=== PATIENT | male | born 1970 | race Caucasian/White ===

== ENCOUNTER 2016-09-20 17:05 | Observation (INO) | payer BC ==
--- NOTE | ~2016-09-20 | HP ---
History And Physical [facility] [address] [place]. [address] NAME: DES SAMS : 72 STATUS : ADM Prasanth PAT#: [id number] AGE: 46 ADM/REG DATE : 09/20/16 MR#: [id number] REPORT SERV DATE: 09/21/16 DICTATED BY: JOSE ALBERTO BYRD DATE: 09/21/16 REPORT STATUS : Draft TRANSCRIBED BY: MODAbdon DATE: 09/21/16 DATE OF ADMISSION: 09/20/2016 CHIEF COMPLAINT: Atypical chest pain. HISTORY OF PRESENT ILLNESS: A very pleasant, affable 46-year-old white gentleman with no known history of CAD, but with risk factors of hypertension, dyslipidemia, AODM, and positive family history of tobacco abuse, states that he feels he is under considerable stress. He recently purchased a new home and has yet to sell his previous one. 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 With a large [employer] and feels under considerable stress. He states that on 09/19/2016 on Sunday he mowed the lawn at both residence, and later in the day consumed six vodka drinks and a bottle of wine. Sunday morning on 09/20/2016, he did not feel well. He thought it was secondary to the alcohol consumption. He noted some numbness in his hands and also felt as if when he urinated he was voiding "cold urine." He felt somewhat dizzy, somewhat diaphoretic. He sat down while at work, coworker's assisted him. He then felt some neck tightness and a minor chest "poke" in his left chest that occurred twice over 5 to 10 minutes. He reports associated shortness of breath, diaphoresis, and dizziness. Denies any nausea or belching. He describes the chest discomfort as he rates it as a 1.5/10. At the time of interview in the [facility], he is pain free, and he states the episode lasted seconds in duration. The patient has never had a stress test. He was concerned about the symptoms, given his mother's sudden at 54 of a heart attack. The patient denies any personal history of myocardial infarction, stroke, DVT, or pulmonary embolus. The patient denies any recent fever or chills, no palpitations, no syncopal episodes. Denies PND or orthopnea. PAST MEDICAL HISTORY: 1. Hypertension. 2. Dyslipidemia. 3. AODM. 4. Positive family history for early CAD. 5. Ongoing tobacco abuse. 6. Alcohol abuse. PAST SURGICAL HISTORY: None. SOCIAL HISTORY: He is . He does not have any children. He is employed in construction, is in inconsistent workout routine, although he is extremely active on the job site, and managing two residence. He smokes approximately a half pack per day for 30 plus years. Also uses smokeless tobacco. At times, he consumes four to ten drinks most days from vodka to wine. He occasionally smokes marijuana. FAMILY HISTORY: Mother at the age of 54 of a heart attack. REVIEW OF SYSTEMS: History And Physical [address] [address] NAME: DES SAMS : 72 STATUS : ADM Prasanth PAT#: [id number] AGE: 46 ADM/REG DATE : 09/20/16 MR#: [id number] REPORT SERV DATE: 09/21/16 DICTATED BY: JOSE ALBERTO BYRD DATE: 09/21/16 REPORT STATUS : Draft TRANSCRIBED BY: QUINN DATE: 09/21/16 A 14-point review of systems was performed, significant for HPI including snores per report with no formal sleep study. Home blood pressures of 120 to 140 over 90. Blood sugars of 110 to 140. Otherwise complete review of systems obtained and negative. ALLERGIES: NO KNOWN DRUG ALLERGIES HOME. HOME MEDICATIONS: Aspirin p.r.n., citalopram 5 mg daily, Trilipix 135 mg daily, lisinopril 10 mg daily, Claritin p.r.n., metformin 1000 mg twice daily, multivitamin daily, pravastatin 20 mg nightly, and a nasal spray p.r.n. PHYSICAL EXAMINATION: BLOOD PRESSURE: Bilateral blood pressures on arrival, right 149/83, left 144/81, this morning 135/91, PULSE: 85, RESPIRATORY RATE: 17, TEMPERATURE: 98.2, O2 saturation 96% on room air. HEIGHT: 6 feet 0 inches, WEIGHT: 216 pounds. BMI of 29. GENERAL: Cooperative, in no apparent distress. HEENT: Pupils 2 mm, sclera nonicteric. Nares patent. Moist mucous membranes. No xanthelasma. NECK: Trachea midline, no thyromegaly. No JVD. No bruits. LYMPH: No cervical lymphadenopathy. No supraclavicular lymphadenopathy. RESPIRATORY: Unlabored respirations. Breath sounds clear bilaterally to posterior auscultation. No wheezes or rhonchi. CARDIOVASCULAR: Regular rate. No murmur, rub or gallop appreciated. EXTREMITIES: Without edema. Pulses 2+ bilaterally. ABDOMEN: Soft, nontender, nondistended, normal bowel sounds auscultated throughout. No organomegaly. SKIN: Warm, dry extremities. No pallor, or cyanosis. PSYCHIATRIC: Appropriate affect. Alert, oriented x3. LABORATORY DATA: Troponin is less than 0.02 x3. Potassium 3.9, BUN 11, creatinine 1.25, glucose 123, and magnesium 1.9. WBC of 7.6, hemoglobin 13.1, hematocrit 38.1, and platelet count 313,000. EKG; sinus rhythm (initially sinus tachycardia). ASSESSMENT AND PLAN: 1. Atypical chest pain in patient with multiple risk factors. The patient has been observed in the CP[facility] overnight to rule out myocardial infarction with serial enzymes and serial EKGs and held n.p.o. We will proceed with exercise treadmill today. The patient will be discharged home if low risk, no ischemia. If anything suggestive of ischemia, Cardiology referral will be initiated. Otherwise, the patient will be asked to follow up with the PCP in one to two weeks with all studies being sent to that office. 2. Hypertension. Monitor blood pressure and continue home medications. 3. Dyslipidemia. Continue statin. 4. Adult onset diabetes mellitus. Hold metformin, level 1 sliding scale correction. 5. Ongoing tobacco abuse. Counseled regarding cessation for cardiovascular health and well being. The patient agrees to quit. 6. Alcohol abuse. Counseled regarding reduction or abstinence. History And Physical [address] [place]. [address] NAME: DES SAMS : 72 STATUS : ADM Prasanth PAT#: [id number] AGE: 46 ADM/REG DATE : 09/20/16 MR#: [id number] REPORT SERV DATE: 09/21/16 DICTATED BY: JOSE ALBERTO BYRD DATE: 09/21/16 REPORT STATUS : Draft TRANSCRIBED BY: QUINN DATE: 09/21/16 CHERRY/QUINN FRANCK Jose, CRISTIN-CHRISSIE / [id number] CC: FRANCK Jose, CRISTIN-CHRISSIE Lucero M.D.
[2016-09-20] MEDS ORDERED: CENTRUM PO (17:07)
[2016-09-20] MEDS ORDERED: TRILIPIX135 MG PO (17:08)
[2016-09-20] MEDS ORDERED: GLUMETZA1000 MG PO (17:08)
[2016-09-20] MEDS ORDERED: PRAVAC PO (17:08)
[2016-09-20] MEDS ORDERED: PRIN10 PO (17:08)
[2016-09-20] MEDS ORDERED: CLARIT10 PO (17:09)
[2016-09-20] MEDS ORDERED: ASAB PO (17:09)
[2016-09-20] MEDS ORDERED: CELEXA10 PO (17:09)
[2016-09-20] MEDS ORDERED: [UNRECOGNIZED DRUG - REMARK] NAS (17:10)
[2016-09-20 17:21] LABS: BASOPHILS 0.4 %; BASOPHILS ABSOLUTE 0.03 10/3/uL (0.0-0.16); EOSINOPHILS 1.3 %; HEMATOCRIT 38.1 % (40.0-51.0); HEMOGLOBIN 13.1 g/dL (13.6-17.8); IMMATURE GRANULOCYTES 0.1 %; IMMATURE GRANULOCYTES ABSOLUTE 0.01 10/3/uL (0.0-0.11); LYMPHOCYTES 26.2 %; MEAN CORPUS HGB CONC 34.4 g/dL (32.0-36.0); MEAN CORPUSCULAR HEMOGLOB 31.6 pg (26.0-34.0); MEAN PLATELET VOLUME 8.9 fL (9.2-13.0); MONOCYTES 7.3 %; MONOCYTES ABSOLUTE 0.56 10/3/uL (0.21-1.20); NEUTROPHILS 64.7 %; NEUTROPHILS ABSOLUTE 4.93 10/3/uL (2.02-8.40); PLATELET COUNT 313 10/3/uL (150-400); RBC DISTRIBUTION WIDTH 12.4 % (12.0-16.0); RED CELL COUNT 4.14 10/6/uL (4.7-6.1); WHITE BLOOD CELLS 7.6 10/3/uL (4.5-10.5)
[2016-09-20 17:22] LABS: MANUAL DIFF NO %
[2016-09-20 17:28] LABS: PARTIAL THROMBO TIME 37.1 SEC (22.5-37.2); PROTIME (NOT ORD) 12.7 SEC (12.0-14.5)
[2016-09-20 17:37] LABS: BUN (BLOOD UREA NITROGEN) 11 MG/DL (6-23); CALCIUM, SERUM 9.3 MG/DL (8.5-10.4); CHEST PAIN PROFILE TAT 0 Hrs 20 Mins; CHLORIDE, SERUM 101 MMOL/L (96-112); CO2 (CARBON DIOXIDE) 27 MMOL/L (24-34); CREATININE 1.25 MG/DL (0.70-1.30); GFR AFRICAN AMERICAN 80 ML/MIN (>=60); GFR NON AFRICAN AMERICAN 69 ML/MIN (>=60); GLUCOSE, SERUM 123 MG/DL (60-99); POTASSIUM, SERUM 3.9 MMOL/L (3.5-5.3); SODIUM, SERUM 138 MMOL/L (135-148); TROPONIN I <0.02 NG/ML (<0.05)
== END 2016-09-21 13:21 | disposition home or self-care (01) ==
LOC: ER 17:05 → CDU1 18:00
PROVIDERS: Emergency Medicine
DX: R07.89 Other chest pain (principal); I10 Essential (primary) hypertension; E78.5 Hyperlipidemia, unspecified; E11.9 Type 2 diabetes mellitus without complications; F17.210 Nicotine dependence, cigarettes, uncomplicated; Z79.82 Long term (current) use of aspirin; Z79.899 Other long term (current) drug therapy
CPT/HCPCS: 71010; 80048; 82962; 83735; 84484; 85025; 85610; 85730; 93005; 93017; 99285; A9270-GY; G0378